=== PATIENT | female | born 1960 | race Caucasian/White ===

== ENCOUNTER → 2017-08-29 | Outpatient (CLI) | payer OTHER ==
--- NOTE | 2017-08-29 09:06 | RAD ---
Indication right shoulder pain. Injured while moving fracture. Internally and externally rotated views of the right shoulder as well as a Y view were obtained. No prior imaging of the shoulder is available. There is soft tissue calcification about the shoulder similar to an examination 02/24/2015. There are some minimal degenerative changes at the AC joint. No fracture or acute finding is seen. There are no significant degenerative changes at the glenohumeral joint. IMPRESSION: Chronic soft tissue calcification. No acute finding seen about the right shoulder
== END | disposition home or self-care (01) ==
LOC: DXRADRC 08:33
PROVIDERS: ATTEND Physician Assistant Medical
DX: M19.011 Primary osteoarthritis, right shoulder (principal); M25.811 Other specified joint disorders, right shoulder
CPT/HCPCS: 73030

== ENCOUNTER → 2019-02-14 | Outpatient (CLI) | payer OTHER ==
--- NOTE | 2019-02-14 11:20 | RAD ---
EXAM: Left wrist, 3 views; left thumb, 3 views. HISTORY: Hyperextension. COMPARISON: None. FINDINGS: 3 views of the right wrist and right thumb are obtained. There is a ossific density adjacent to the trapezium which appears to be corticated and is likely a prominent osteophyte or chronic fragmented osteophyte rather than displaced fracture fragment. There is first carpometacarpal joint space narrowing and subchondral sclerosis. There is minimal first interphalangeal joint spurring. IMPRESSION: 1. Suspected prominent osteophyte or chronic fragmented osteophyte along the radial aspect of the trapezium and associated first carpometacarpal osteoarthritis. 2. Minimal first interphalangeal joint osteoarthritis. Electronically signed by: Charis Garza MD (02/14/2019 11:17 AM) [facility]
== END | disposition home or self-care (01) ==
LOC: PMG 10:36
PROVIDERS: ATTEND Physician Assistant Medical
DX: M19.032 Primary osteoarthritis, left wrist (principal)
CPT/HCPCS: 73110; 73140

== ENCOUNTER → 2019-02-14 | Outpatient (CLI) | payer OTHER ==
--- NOTE | 2019-02-14 15:34 | RAD ---
Bone densitometry scan, 02/14/2019: HISTORY: Postmenopausal evaluation The lumbar spine and right hip were examined utilizing a DEXA technique. The bone mineral density in the lumbar spine as measured from the L1-L4 levels is 1.23 g/sq cm. This yields a T score of 0.4 which is in the normal range. The total T score at the right hip is 0.2 which is also in the normal range. IMPRESSION: Normal bone mineral density measurements. Electronically signed by: Alvaro Pink MD (02/14/2019 3:31 PM) [facility]
--- NOTE | 2019-02-14 15:44 | RAD ---
DATE: 02/14/2019 EXAM: MAMMO CHLOE SCREENING BILATERAL HISTORY: Routine screening COMPARISON: Baseline study This study was interpreted with the benefit of Computerized Aided Detection (CAD). Breast Density: HETERO The breast parenchyma is heterogenously dense, which could reduce sensitivity of mammography. Breast parenchyma level C. FINDINGS: 2-D and 3-D tomosynthesis imaging was performed in CC and MLO projections. No spiculated mass or architectural distortion is seen. Benign type calcifications are present. No suspicious microcalcifications are evident. IMPRESSION: There is no mammographic evidence of malignancy in either breast. BI-RADS CATEGORY: 2 BENIGN FINDING(S) RECOMMENDED FOLLOW-UP: 12M 12 MONTH FOLLOW-UP PQRS compliance statement: Patient information was entered into a reminder system with a target due date for the next mammogram. Mammography is a sensitive method for finding small breast cancers, but it does not detect them all and is not a substitute for careful clinical examination. A negative mammogram does not negate a clinically suspicious finding and should not result in delay in biopsying a clinically suspicious abnormality. "Our facility is accredited by the [employer] Mammography Program."
== END | disposition home or self-care (01) ==
LOC: DXRAD 14:57
PROVIDERS: ATTEND Physician Assistant Medical
DX: Z12.31 Encounter for screening mammogram for malignant neoplasm of breast (principal); Z13.820 Encounter for screening for osteoporosis; Z78.0 Asymptomatic menopausal state
CPT/HCPCS: 77063; 77067; 77080